=== PATIENT | female | born 1965 | race Caucasian/White ===

== ENCOUNTER → 2017-08-14 | Outpatient (CLI) | payer OTHER ==
[~2017-08-14] MED LIST: AMLO5TAB2 PO; LEVO125C2 PO; LOSA100T2 PO; METO-95 PO; OMNIPAQUE 350 MG/ML, 100ML BOTTLE ONE; PARVASTATIN PO; SPIR25TA3 PO; WARF5TAB9 PO
== END | disposition home or self-care (01) ==
LOC: CFH 12:07
PROVIDERS: ATTEND Internal Medicine
DX: I71.2 Thoracic aortic aneurysm, without rupture (principal)
CPT/HCPCS: 71275; 74174; 82565; Q9967